=== PATIENT | male | born 1980 | race Caucasian/White ===

== ENCOUNTER 2021-07-17 17:03 | Emergency (ER) | payer OTHER ==
[~2021-07-17] VITALS: Ht 180.3 cm; Wt 99.8 kg
[2021-07-17 17:22] VITALS: BP 153/92
--- NOTE | 2021-07-17 18:00 | NUR ---
MAGALIS MARIANO ATTEMPTED TO CALL PT, NO ANSWER
--- NOTE | 2021-07-17 18:15 | NUR ---
MAGALIS MARIANO ATTEMPTED TO CALL PT A SECOND TIME, NO ANSWER
--- NOTE | 2021-07-17 18:45 | NUR ---
FINAL ATTEMPT TO CALL PT, NO ANSWER IN LOBBY OR TENT. PATIENT LEFT WITHOUT BEING SEEN BY MAGALIS MARIANO. NO FURTHER CARE PROVIDED FOR PATIENT.
== END 2021-07-17 18:45 | disposition left against medical advice (07) ==
LOC: MED 17:03
DX: R50.9 Fever, unspecified (principal); Z53.21 Procedure and treatment not carried out due to patient leaving prior to being seen by health care provider